=== PATIENT | female | born 1985 | race Caucasian/White ===

== ENCOUNTER 2019-05-29 06:30 | Emergency (ER) | payer MEDICARE, MEDICAID ==
[~2019-05-29] VITALS: Ht 167.6 cm; Wt 63.5 kg
[~2019-05-29 06:30] MED LIST: ATEN25TA PO; BENZ0.5T19 PO; DEXL60CA3 PO; DOCU-94 PO; FURO40TA4 PO; GABA100C9 PO; HAL5T PO; INSLANTI SC; MELA3TAB27 PO; METO5TAB2 PO; PERCOT PO; RIS1T PO; SERT50TA PO; TAM04C PO; TRAZ50TA2 PO
[2019-05-29] MEDS ORDERED: DEXTROSE 50% SYRINGE 50 ML IV ONE (06:51)
[2019-05-29] MEDS ORDERED: DEXTROSE (50%) 50ML SYRG IV ONE (07:00)
[2019-05-29 07:10] LABS: Basophils # (auto) 0.2 uL; Eosinophils # (auto) 0.2 uL; Eosinophils % (auto) 1.1 % (0.0-7.0); Hematocrit 44.4 % (36.0-46.0); Hemoglobin 14.2 g/dL (12.2-16.2); Lymphocytes # (auto) 0.7 uL; Lymphocytes % (auto) 3.7 % (10.0-50.0); Mean Corpuscular Hemoglobin 31.2 pg (28.0-32.0); Mean Corpuscular Volume 97.4 fL (80.0-100.0); Monocytes # (auto) 1.4 uL; Monocytes % (auto) 7.8 % (0.0-12.0); Neutrophils # (auto) 16.1 uL; Neutrophils % (auto) 86.4 % (37.0-80.0); Platelet Count (auto) 285 10^3/uL (140-450); Red Blood Cells 4.56 10^6/uL (4.0-5.20); Red Cell Distribution Width 15.2 % (11.8-14.3); White Blood Cell 18.6 10^3/uL (4.4-10.8)
[2019-05-29 07:24] LABS: Albumin 3.2 g/dL (3.4-5.0); Calcium 9.1 mg/dL (8.5-10.1)
[2019-05-29 07:25] LABS: INR 0.99 (0.9-1.15); Partial Thromboplastin Time 31.9 sec (23.64-32.05)
[2019-05-29 07:30] LABS: Bilirubin, Total 0.6 mg/dL (0.2-1.0); Total Protein 8.1 g/dL (6.4-8.2)
[2019-05-29] MEDS ORDERED: SODIUM CHLORIDE 0.9% 1,000 ML IV ONE (07:30)
[2019-05-29 07:34] LABS: Potassium 5.8 mmol/L (3.5-5.1)
[2019-05-29 09:26] VITALS: BP 130/71
[2019-05-29] MEDS ORDERED: SODIUM CHL 0.9% 1000 ML BAG XX ONE (10:00)
== END 2019-05-29 11:12 | disposition left against medical advice (07) ==
LOC: EDBD 06:30 → ER 06:30
DX: G93.41 Metabolic encephalopathy (principal); E87.70 Fluid overload, unspecified; E87.2 Acidosis; E11.65 Type 2 diabetes mellitus with hyperglycemia; E87.5 Hyperkalemia; E44.1 Mild protein-calorie malnutrition; E11.22 Type 2 diabetes mellitus with diabetic chronic kidney disease; I13.2 Hypertensive heart and chronic kidney disease with heart failure and with stage 5 chronic kidney disease, or end stage renal disease; I50.9 Heart failure, unspecified; N18.6 End stage renal disease; Z99.2 Dependence on renal dialysis; Z88.1 Allergy status to other antibiotic agents; Z79.899 Other long term (current) drug therapy
CPT/HCPCS: 36415; 36600; 71045; 80053; 82805; 82962; 83605; 83735; 83880; 84443; 84484; 84702; 85025; 85610; 85730; 87040; 96361; 96374; 99284; J7042